=== PATIENT | male | born 1955 | race Two or more races ===

== ENCOUNTER 2024-07-02 19:25 | Emergency (ER) | payer MEDICARE, MEDICAID, SELFPAY ==
[2024-07-02] VITALS (8 sets, daily range): BP systolic 152–167; BP diastolic 83–102; PULSE 81–102; RESP 16–34; TEMP 37; O2SAT 95–100; BMI 36.6
[2024-07-02] MEDS: LORazepam 2 MG/ML VIAL 1 MG IVP (19:34)
--- NOTE | 2024-07-02 19:35 | EDNOTE_ITS ---
ED SOB =RME/HPI General Chief Complaint: Upper Respiratory Infection Stated Complaint: SOB Time Seen by Provider: 07/02/24 19:25 Arrival date/time: 07/02/24 19:25 RME / HPI RME / HPI Narrative: Chief complaint: Throat pain/ closure HPI: Patient is a 68 year old with PMH of essential hypertension, DM, hypercholesterolemia, obesity and peripheral neuropathy, presented to the ED due to dyspnea and sensation of foreign body to the throat. patient was brought in by EMS after family called when patient felt that he was going to have airway difficulties. Patient had difficulty speaking at home due to rapid respirations and developed anxiety. Patient states he has had sore throat for the past 2 days but no fevers, shakes, chills, sweats. No recent cough. As per EMS, patient was given multiple doses of Benadryl and Motrin at home without relief. Patient denies chest pain, nausea, vomiting. Denies rash or itchy skin. Patient denies new medications or new foods today. Patient states he often has a sensation of swelling to the throat and his gives him a Benadryl which relieves the symptoms each time. Today was different and that it was much worse than usual and the Benadryl did not help. Patient denies trauma. Patient received bronchodilators en-route to ER as well as BiPAP. Patient with tachycardia and tachypnea but no inspiratory or expiratory stridor, no voice change. No recent dental infections or tongue elevation. Patient appeared very much anxious, and was able to speak with 2-3 word answers. 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 Tobacco?Use:?Denies ETOH?Use:?Socially Drug?Note:?Denies Social?History?Note:?Lives?at home with family Family history: No family hx of cancers MD Complaint: shortness of breath Onset (ago): hour(s) Context: recent illness and anxiety Severity: moderate Consistency/Duration: constant Relieving factors: upright position and medication Treatment prior to arrival: bronchodilator and other Related Data Previous Rx's ?Medication ?Instructions ?Recorded amoxicillin 875 mg-potassium 1 tab PO BID Strep pharyngitis 10 07/03/24 clavulanate 125 mg tablet days #20 tabs amoxicillin 875 mg-potassium 1 tab PO BID Strep pharyngitis 10 07/03/24 clavulanate 125 mg tablet days #20 tabs dexamethasone 6 mg tablet 12 mg (2 x 6 mg) PO QDAY Uvulitis 07/03/24 1 day #2 tabs dexamethasone 6 mg tablet 12 mg (2 x 6 mg) PO QDAY Uvulitis 07/03/24 1 day #2 tabs Allergies Allergy/AdvReac Type Severity Reaction Status Date / Time No Known Allergies Allergy Verified 07/03/24 01:22 Review of Systems Review of Systems Systems Reviewed: All systems reviewed, normal except as documented Narrative Review of Systems: GENERAL: Denies fevers/chills or diaphoresis. HEENT: Denies headache or visual/hearing changes. Denies nasal discharge. Throat closure NEURO: Denies unusual weakness or difficulty speaking. CARDIO: Denies chest pain or palpitations. PULM: acute SOB, no coughing, or wheezing. GI: Denies abdominal pain, N/V/C/D. Reports having BMs URO: Denies burning/itching/pain/urinary changes. MSK/EXT/SKIN: Denies joint/skeletal/muscle pain, issues/changes in upper or lower extremities, itchiness, or superficial pain. PSYCH: Cooperative, pleasant mood & affect. The rest of the review of systems is otherwise negative. ED Exam Narrative Physical exam: Constitutional Alert, oriented x3 and uncomfortable, obese. Patient appears very much anxious.+ Tachypnea and tachycardia HEENT Vision intact. Patent nares. O2 sats 98-100 on RA. Trachea midline. Uvula and soft palate edema Respiratory Chest normal on inspection and rales on auscultation bilaterally. Cardiovascular S1 and S2 audible, RRR. No murmurs or carotid bruit. No gross JVD. Abdominal Soft and non tender to palpation in all quadrants. BS + Genitourinary No bladder tenderness, no flank pain. Normal to palpation. Musculoskeletal Extremities tone within normal limits. No LE edema. Neurological CN II - XII grossly intact. Extremity motor and sensation grossly intact. Skin Warm, dry and intact. No apparent lesions. Psychiatric Patient has a good affect, is cooperative. Course Course Course Narrative: 2329: Spoke with [facility]'s transfer center regarding consultation. Awaiting callback from ENT at this time. 0053: Patient is saturating at 96% on room air. Patient does not have any signs of respiratory distress or stridor at this time. 0058: Spoke with Dr. Arcos, ENT specialist from [facility], who reviewed the CT scan and states there is no epiglottis swelling. He stated this is not epiglottitis due to the patient's improvement with Ativan. Recommends prescribing steroids and antibiotics, and having the patient follow-up with PCP. He was given 1 mg Ativan with significant relief, oxygen saturations remain 98- 100% throughout, even while talking. On throat inspection, patient had severe uvular and soft palate edema, with a Mallampati score of 3 at best. Quality Measures none Orders Category Date Time Status Bedside Influenza A&B Antigen Test NOW Care 07/02/24 20:[address] Screening NOW Care 07/02/24 19:[address] soft tissue neck w con Stat Exams 07/02/24 19:47 Completed CBC Stat Lab 07/02/24 19:50 Completed CMP [Comprehensive Metabolic Panel] Stat Lab 07/02/24 19:50 Completed ESR [Sed Rate (ESR)] Stat Lab 07/02/24 19:50 Completed PTT [Partial Thromboplastin Time] Stat Lab 07/02/24 19:50 Completed Prothrombin Time with INR Stat Lab 07/02/24 19:50 Completed RSV [Respiratory Syncytial Virus Ag] Stat Lab 07/02/24 20:01 Completed Strep A Rapid Stat Lab 07/02/24 19:52 Completed Dexamethasone Inj [Decadron Inj] Med 07/02/24 19:48 Discontinued 10 mg IV X1 ONE EPINEPHrine Rt Khloe [Racemic Epi Rt Khloe] Med 07/02/24 19:35 Discontinued 0.5 ml .ROUTE .STK-MED ONE EPINEPHrine Rt Khloe [Racemic Epi Rt Khloe] Med 07/02/24 19:43 Discontinued 0.5 ml INH X1 ONE Ketorolac Inj [Toradol Inj] Med 07/02/24 19:48 Discontinued 15 mg IVP X1 ONE LORazepam [Ativan Inj] Med 07/02/24 19:32 Discontinued 1 mg IVP X1 ONE LORazepam [Ativan Inj] Med 07/02/24 19:29 Discontinued 2 mg .ROUTE .STK-MED ONE Sodium Chloride Rt Khloe 0.9% [NS Rt Khloe 0.9%] Med 07/02/24 19:43 Discontinued 3 ml INH PRN PRN BiPAP / CPAP NOW RT 07/02/24 19:43 Completed Vital Signs Vital signs: Vital Signs Pulse Rate 101 H 07/02/24 19:35 Respiratory Rate 34 H 07/02/24 19:35 Pulse Oximetry (%) 99 07/02/24 19:35 Oxygen Delivery Method CPAP 07/02/24 19:35 Procedures -ED Procedure Comment Patient's EKG at 19:30 showed normal sinus rhythm at 98 with normal axis, no ectopy. No signs of acute ischemia. Shortness of Breath / Dyspnea Patient data External records reviewed:: [facility] previous records (Per chart review, patient has no previous ED visits or admissions to this facility.) Clinical information provided by:: patient and EMS Social determinants that could affect healthcare access:: none Patient has the following chronic illnesses:: essential hypertension, DM, hypercholesterolemia, obesity and peripheral neuropathy How is presenting disease/condition affected by chronic disease/condition?: exacerbated by Evaluation data The following diagnostics were reviewed and interpreted by me:: lab results, radiology exam(s) and EKG tracing(s) (see procedure note) Lab and/or radiology exams considered but not ordered:: MRI Interpretation Summary: CBC is normal, PTT is normal, PT and INR are normal, CMP is normal, RSV is negative, Strep is negative, Bedside Influenza is negative, according to my interpretation. [facility] Report Signed Patient: TENZIN TREADWELL. Record#: [id number] Birthdate: 1955 Age/Sex: 68 / M Location: [facility] Attending Dr: Ordering Physician: Beni Serna MD Date of Service: 07/02/24 Procedure(s): CT soft tissue neck w con Accession Number(s): [id number] cc: Paul Roman MD; Jose Peterson MD; Beni Serna MD~ Examination: CT soft tissue neck, with intravenous contrast. 2-D coronal reconstructions. 2-D sagittal reconstructions. Date and time of exam :July 02, [id number] hrs. Indications: Difficulty breathing today, diagnosis cellulitis soft tissue palate swelling. CTDI: vol (mGy):12.5 DLP: (mGycm):300 Technique: 1.25 mm axial sections of the neck of the obtained. Coronal and sagittal reconstructions have been obtained. Intravenous contrast administered 50 cc Isovue-370. Low dose protocols were performed. One or more of the following dose reduction techniques were used; automated exposure control, adjustment of the mA and/or KV according to patient size, use of iterative reconstruction technique. Findings: Significant maxillary sinusitis Symmetrical nasopharynx oropharynx Uvula is prominently thickened, sagittal image 46 Mildly prominent prevertebral soft tissue prominence at the C4-C5 level The larynx appears normal Epiglottis is minimally thickened No encroachment upon the subglottic region Advanced degenerative disc disease C6-C7 Impression: Prominent thickening of the uvula, clinical correlation advised Mild thickening of the epiglottis Mild prevertebral soft tissue prominence C4-C5 level No laryngeal mass No tonsillar abscess Dictated By: Jose Peterson MD Signed By: <Electronically signed by Jose Peterson MD in [place]> 07/02/248 Medications / Prescriptions Medications or Prescriptions considered but not ordered:: Antihistamines, benzocaine Medication administrations:: Medication Administration History Discontinued Medications Dexamethasone Sodium Phosphate (Dexamethasone Sod Phos Inj 10 Mg/Ml Vial) 10 mg IV X1 ONE Stop: 07/02/24 19:49 Last Admin: 07/02/24 19:55 Dose: 10 mg Documented By: CB Epinephrine (Epinephrine Rt Khloe 0.5 Ml Nebu) Confirm Administered Dose 0.5 ml .ROUTE .STK-MED ONE Stop: 07/02/24 19:36 Last Admin: 07/02/24 19:47 Dose: Not Given Documented By: PAR Non-Admin Reason: Duplicate Medication on eMAR Epinephrine (Epinephrine Rt Khloe 0.5 Ml Nebu) 0.5 ml INH X1 ONE Stop: 07/02/24 19:44 Last Admin: 07/02/24 19:47 Dose: 0.5 ml Documented By: JADEN Ketorolac Tromethamine (Ketorolac Inj 30 Mg/Ml Vial) 15 mg IVP X1 ONE Stop: 07/02/24 19:49 Last Admin: 07/02/24 19:53 Dose: 15 mg Documented By: RADHA Lorazepam (Lorazepam 2 Mg/Ml Vial) 1 mg IVP X1 ONE Stop: 07/02/24 19:33 Last Admin: 07/02/24 19:34 Dose: 1 mg Documented By: RADHA Lorazepam (Lorazepam 2 Mg/Ml Vial) Confirm Administered Dose 2 mg .ROUTE .STK- MED ONE Stop: 07/02/24 19:30 Last Admin: 07/02/24 19:38 Dose: Not Given Documented By: RADHA Non-Admin Reason: Override Medication Sodium Chloride (Sodium Chloride Rt Khloe 0.9% 3 Ml Nebu) 3 ml INH PRN PRN PRN Reason: SOLN Stop: 08/01/24 19:42 see above Consultations Consultation(s) initiated? (list below): Yes Consultation #1 (Physician, Specialty, Details): see course Diagnosis Shortness of Breath Differential Diagnosis: acute exacerbation of chronic obstructive airways disease, community acquired pneumonia, asthma with exace rbation and other Most likely diagnosis given after review of the tests above:: uvulitis, pharyngitis Admission Indicated Admission indicated?: not indicated Explain why admission is indicated or not indicated:: Per Dr. Arcos, ENT specialist at [facility], patient is stable to be discharged home and follow-up with his PCP on an outpatient basis. Admission Request Was there a request for admission?: No Disposition Plan Disposition Plan: Discharge Discharge Attestation Discharge Attestation: The patient and all family members were given an opportunity to ask questions and understood the discharge instructions. Discharge instructions specifically effects, indications for sooner follow up or return to the emergency department, and the expected course of current diagnosis. Patient condition: Stable Critical Care Time Critical Care Time Critical Care Time: Yes Total Critical Care Time (min.): 40 Attestation: The high probability of sudden, clinically significant deterioration in the patient?s condition required the highest level of my preparedness to intervene urgently. The services I provided to this patient were to treat and/or prevent clinically significant deterioration. Services included the following: chart data review, reviewing nursing notes and/or old charts, documentation time, technical support consultant collaboration regarding findings and treatment options, medication orders and management, direct patient care, vital sign assessments and ordering, interpreting and reviewing diagnostic studies and lab tests. Aggregate critical care time includes only time during which I was engaged in work directly related to the patient?s care, as described above, whether at bedside or elsewhere in the Emergency Department. It did not include time spent performing other reported procedures or the services of residents, students, nurses or physician assistants. Discharge Plan Plan Patient Disposition: HOME (Self Care) Disposition Comment: Stable for discharge Patient condition on transfer: Stable Prescriptions/Referrals Prescriptions/Med Rec: New dexamethasone 6 mg tablet 12 mg PO QDAY 1 Days Qty: 2 0RF Rx Instructions: To be given at 4 PM on 07/03/2024 amoxicillin-pot clavulanate 875-125 mg tablet 1 tab PO BID 10 Days Qty: 20 0RF amoxicillin-pot clavulanate 875-125 mg tablet 1 tab PO BID 10 Days Qty: 20 0RF dexamethasone 6 mg tablet 12 mg PO QDAY 1 Days Qty: 2 0RF Referrals: [facility] [Outside] - In 1 week Problem List Clinical Impression: Pharyngitis, Uvulitis Patient/Caregiver Discharge Instructions Discharge Activity: activity as tolerated Education Materials: ED Pharyngitis, Report Pending, ED Uvulitis Additional Instructions: Please return to the er for any worsening or any further medical problems or if you feel that you are not improving within 48 hours Please follow-up [facility] within the next several days You should go to the pharmacy and coal picker your prescriptions. One of them is called Augmentin which is your antibiotic. You should take that twice a day for 10 days. The other medicine is called dexamethasone. You should take the 2 tabs of dexamethasone this afternoon Print Language: Greek Stand Alone Forms: [facility] Award Info., Patient Portal Info Letter
[2024-07-02] MEDS: EPINEPHrine RT SOL 0.5 ML NEBU INH (19:47)
--- NOTE | 2024-07-02 19:47 | XR_ITS ---
Examination: CT soft tissue neck, with intravenous contrast. 2-D coronal reconstructions. 2-D sagittal reconstructions. Date and time of exam :July 02, 20249 hrs. Indications: Difficulty breathing today, diagnosis cellulitis soft tissue palate swelling. CTDI: vol (mGy):12.5 DLP: (mGycm):300 Technique: 1.25 mm axial sections of the neck of the obtained. Coronal and sagittal reconstructions have been obtained. Intravenous contrast administered 50 cc Isovue-370. Low dose protocols were performed. One or more of the following dose reduction techniques were used; automated exposure control, adjustment of the mA and/or KV according to patient size, use of iterative reconstruction technique. Findings: Significant maxillary sinusitis Symmetrical nasopharynx oropharynx Uvula is prominently thickened, sagittal image 46 Mildly prominent prevertebral soft tissue prominence at the C4-C5 level The larynx appears normal Epiglottis is minimally thickened No encroachment upon the subglottic region Advanced degenerative disc disease C6-C7 Impression: Prominent thickening of the uvula, clinical correlation advised Mild thickening of the epiglottis Mild prevertebral soft tissue prominence C4-C5 level No laryngeal mass No tonsillar abscess
[2024-07-02] MEDS: KETOROLAC INJ 30 MG/ML VIAL 15 MG IVP (19:53)
[2024-07-02] MEDS: DEXAMETHASONE SOD PHOS INJ 10 MG/ML VIAL IV (19:55)
[2024-07-02 20:27] LABS: Alanine Aminotransferase 21 U/L (10-49); Albumin, Serum 4.4 gm/dL (3.4-4.8); Albumin/Globulin Ratio 1.4 (1.2-2.2); Alkaline Phosphatase 77 U/L (46-116); Anion Gap 10 (7-16); Aspartate Amino Transferase 30 U/L (0-34); BUN/Creatinine Ratio 12 Ratio (12-20); Bilirubin,Total 0.5 mg/dL (0.3-1.2); Blood Urea Nitrogen 13 mg/dL (9-23); Calcium 9.2 mg/dL (8.3-10.6); Calcium (Corrected) 9.2 mg/dL (8.5-10.1); Carbon Dioxide 23.9 mMol/L (20.0-31.0); Chloride 100 mMol/L (98-107); Creatinine (Component) 1.1 mg/dL (0.6-1.3); Estimated Creatinine Clearance 69.8 mL/min (>60); Globulin 3.2 gm/dL (2.3-3.5); Glucose 96 mg/dL (74-106); Osmolality,Calculated 268 (275-295); Potassium 3.8 mMol/L (3.4-5.1); Sodium 134 mMol/L (136-145); Total Protein 7.6 gm/dL (5.7-8.2); eGFR > 60 See Note
--- NOTE | 2024-07-02 20:29 | PC.NURSE ---
PT BROUGHT INTO ER BY AMBULANCE FROM HOME FOR SHORTNESS OF BREATH THAT STARTED PRIOR TO ARRIVAL. PT REPORTS SIMILAR INCIDENT IN PAST AND THINKS HE MAY BE HAVING AN ALLERGIC REACTION. PER EMS PT TOOK BENADRYL AT HOME WITH NO RELIEF. PT GIVEN BREATHING TREATMENT AND PLACED ON CPAP IN ROUTE.
[2024-07-02 20:36] LABS: Strep A Rapid Negative (Negative)
[2024-07-02 20:36] LABS: Respiratory Syncytial Virus Ag Negative (Negative)
[2024-07-02 20:56] LABS: Basophils % (Auto) 0 % (0-2.5); Eosinophils # (Auto) 0.2 Thou/mm3 (0.0-0.5); Eosinophils % (Auto) 2 % (0-10); Hematocrit 40.6 % (41.0-53.0); Hemoglobin 14.4 g/dL (13.5-16.0); Immature Granulocytes % (Auto) 0 % (0-0); Immature Granulocytes Auto 0.03 Thou/mm3 (0.00-0.00); Lymphocytes # (Auto) 2.4 Thou/mm3 (1.0-4.8); Lymphocytes % (Auto) 28 % (10-50); Mean Corpuscular HGB Conc 35.5 g/dl (31.0-37.0); Mean Corpuscular Hemoglobin 33.2 pg (25.0-35.0); Mean Corpuscular Volume 94 fL (80-100); Monocytes # (Auto) 0.6 Thou/mm3 (0.0-0.8); Monocytes % (Auto) 7 % (0-12); Neutrophils # (Auto) 5.2 Thou/mm3 (1.8-7.7); Neutrophils % (Auto) 62 % (37-80); Nucleated Red Blood Cell % 0 /100 WBC (0); Platelet Count 151 Thou/mm3 (140-440); RDW Standard Deviation 44.7 fL (35.1-43.9); Red Blood Count 4.34 Miln/mm3 (4.50-5.90); White Blood Count 8.4 Thou/mm3 (3.8-10.6)
[2024-07-02 21:37] LABS: Partial Thromboplastin Time 26.4 Seconds (22.0-36.0); Prothrombin Time 11.4 Seconds (9.0-12.2)
[2024-07-02 21:44] LABS: Sed Rate (ESR) 27 mm/hr (0-20)
--- NOTE | 2024-07-02 22:21 | PC.NURSE ---
[facility] FAXED PAPERWORK FOR POSSIBLE TRANSFER/CONSULT ENT, SPOKE WITH RAMOS, WILL CALL BACK
[2024-07-03 01:53] VITALS: BP 169/95; PULSE 78; RESP 18; TEMP 36.6; O2SAT 96
== END 2024-07-03 01:54 | disposition home or self-care (01) ==
PROVIDERS: Student in an Organized Health Care Education/Training Program; Emergency Provider Emergency Medicine; PCP Family Medicine
DX: K12.2 Cellulitis and abscess of mouth (principal); J02.9 Acute pharyngitis, unspecified
CPT/HCPCS: 36415; 70491; 80053; 85025; 85610; 85652; 85730; 87400; 87502; 87634; 87651; 94640; 94660; 96374; 99285; A4649; J1100; J1885; J2060; Q9967

== ENCOUNTER → 2025-05-20 | Outpatient (CLI) | payer MEDICARE, MEDICAID, SELFPAY ==
--- NOTE | 2025-05-20 09:30 | XR_ITS ---
EXAMINATION: Transrectal prostate sonography TECHNIQUE: Grayscale transrectal sonographic images prostate Date and time: 2024, 0 8:00 a.m. INDICATION: Elevated PSA on laboratory examination 2 months ago FINDINGS: Prostate 4.7 x 3.0 x 3.7 cm volume 27 cc Prostate calcifications, no solid prostate nodule IMPRESSION: Prostate calcifications, no prostate nodule
== END | disposition home or self-care (01) ==
LOC: CDIM 09:22
PROVIDERS: PCP Physician Assistant; Referring Provider Physician Assistant; Visit Provider Physician Assistant
DX: N42.89 Other specified disorders of prostate (principal)
CPT/HCPCS: 76872